=== PATIENT | female | born 1970 | race Caucasian/White ===

== ENCOUNTER → 2017-05-01 | Outpatient (CLI) | payer OTHER ==
[~2017-05-01] MED LIST: ATENOLOL 50MG T50 MG PO; CIPROFLOXACIN500 M1 PO; FLAGYL500 MG PO; FLEXERIL PO; HYDROCODON-ACE1 EAC7 PO; HYDROCODON-ACE1 EACH PO; IBUPROFEN 800800 MG PO; NOHOMEMEDICATIONS; ZOFRAN ODT4 MG PO
== END ==
LOC: RAD 11:17
DX: Z12.31 Encounter for screening mammogram for malignant neoplasm of breast (principal)